=== PATIENT | male | born 1960 | race American Indian/Alaskan Native ===

== ENCOUNTER 2021-09-26 14:55 | Outpatient (CLI) | payer OTHER ==
[2021-09-26 16:02] LABS: Blood Urea Nitrogen 16 mg/dL (9-20)
--- NOTE | 2021-09-29 08:20 | Cat Scan Report ---
CT ABDOMEN AND PELVIS WITH AND WITHOUT CONTRAST INDICATION / CLINICAL INFORMATION: ESSENTIAL HYPERTENSION 100ml of [id number]. TECHNIQUE: Axial CT images were obtained through the abdomen and pelvis before and after 100 cc of Omnipaque 350 IV contrast. Sagittal and coronal reformatted images. All CT scans at this location are performed us ing CT dose reduction for YOMI by means of automated exposure control. COMPARISON: CT abdomen with and without contrast 10/16/2013 and 01/09/2016 FINDINGS: LOWER CHEST: No significant abnormality. LIVER: No significant abnormality. GALLBLADDER: No significant abnormality. BILE DUCTS: No significant abnormality. PANCREAS: No significant abnormality. SPLEEN: No significant abnormality. ADRENALS: There are 2 low-density nodules in the right adrenal gland. A 1 cm hypodense nodule in the lateral limb of the right adrenal gland demonstrates an internal density of -12 Hounsfield units on t he precontrast images consistent with an adrenal adenoma. There is also a 1.6 cm hypodense nodule in the medial limb of the right adrenal gland which demonstrates an internal density of -9 Hounsfield un its on the precontrast images consistent with an adrenal adenoma. These nodules are unchanged since 014. I question if there is a tiny 5 mm hypodense nodule in the body of the left adrenal gland which is too small to characterize. I suspect this represents a third tiny adrenal adenoma. This is also un changed. RIGHT KIDNEY and URETER: No significant abnormality. LEFT KIDNEY and URETER: No significant abnormality. 1.5 cm simple cyst near the upper pole is noted a nd unchanged. STOMACH and SMALL BOWEL: No significant abnormality. COLON: There is mild to moderate diverticulosis of the distal colon. No evidence for mass, obstructio n or inflammatory changes. APPENDIX: No significant abnormality. PERITONEUM: No free fluid. No free air. No fluid collection. LYMPH NODES: No significant adenopathy. AORTA and ARTERIES: No significant abnormality. This is not a CTA examination of the renal arteries a ppear unremarkable IVC and VEINS: No significant abnormality. URINARY BLADDER: No significant abnormality. REPRODUCTIVE ORGANS: Mild prostatomegaly. ADDITIONAL FINDINGS: None. SKELETAL SYSTEM: Mild lumbosacral spondylosis. No suspicious bony lesion or fracture. IMPRESSION: No acute abnormality, suspicious mass or adenopathy. Small bilateral adrenal adenomas as described above, unchanged since 10/16/2013 exam. Mild diverticulosis of the distal colon. Simple left renal cyst. Mild prostatomegaly. Signer Name: Chi Parr Jr, MD Signed: 09/29/2021 8:16 AM Workstation Name: [id number]
== END 2021-09-26 14:56 | disposition home or self-care (01) ==
LOC: CT 14:55
PROVIDERS: ATTEND Internal Medicine
DX: N28.1 Cyst of kidney, acquired (principal); I10 Essential (primary) hypertension; E78.5 Hyperlipidemia, unspecified; K57.30 Diverticulosis of large intestine without perforation or abscess without bleeding; E27.8 Other specified disorders of adrenal gland; N40.0 Benign prostatic hyperplasia without lower urinary tract symptoms; M43.17 Spondylolisthesis, lumbosacral region
CPT/HCPCS: 36415; 74178; 82565; 84520; Q9967